=== PATIENT | male | born 2000 | race Caucasian/White ===

== ENCOUNTER 2020-06-19 15:52 | Emergency (ER) | payer OTHER ==
[~2020-06-19] VITALS: Ht 172.7 cm; Wt 81.8 kg
[2020-06-19] MEDS ORDERED: DIVA-85 PO (16:11)
[2020-06-19] MEDS ORDERED: LURA60TA PO (16:11)
[2020-06-19 18:29] VITALS: BP 124/82
== END 2020-06-19 18:52 | disposition home or self-care (01) ==
LOC: EMS 15:56
DX: S90.111A Contusion of right great toe without damage to nail, initial encounter (principal); W22.8XXA Striking against or struck by other objects, initial encounter; Y93.89 Activity, other specified; Y92.89 Other specified places as the place of occurrence of the external cause; Y99.8 Other external cause status